=== PATIENT | female | born 1980 | race Caucasian/White ===

== ENCOUNTER → 2016-03-21 | Outpatient (CLI) | payer OTHER ==
--- NOTE | 2016-03-21 16:04 | DIAGNOSTIC IMAGING REPORT ---
PROCEDURE: XR LUMBAR SPINE 2 OR 3 VIEWS INDICATION: LUMBOSACRAL PAIO TECHNIQUE: Three views. COMPARISON: None. FINDINGS: Osseous structures and disc spaces are normal. No evidence of an acute process or fracture. IMPRESSION: 1. Negative lumbar spine.
== END ==
LOC: XR SRH 15:44
DX: M54.5 Low back pain (principal)

== ENCOUNTER 2016-04-05 15:00 | Outpatient (CLI) | payer OTHER ==
--- NOTE | 2016-04-05 15:53 | DIAGNOSTIC IMAGING REPORT ---
PROCEDURE: XR KNEE 4 VIEWS - RIGHT INDICATION: RIGHT KNEE BUCKLING TECHNIQUE: Four views. COMPARISON: None. FINDINGS: Osseous structures and joint spaces are normal. There is a small osteochondroma arising from the distal femur medially. IMPRESSION: 1. Small osteochondroma otherwise Normal right knee.
== END 2016-04-05 23:00 ==
LOC: XR SRH 15:00
DX: M25.561 Pain in right knee (principal); D16.21 Benign neoplasm of long bones of right lower limb